=== PATIENT | male | born 2000 | race Caucasian/White ===

== ENCOUNTER 2022-05-23 21:31 | Emergency (ER) | payer OTHER ==
[~2022-05-23] VITALS: Ht 190.5 cm; Wt 75.0 kg
[2022-05-24] MEDS ORDERED: IBUPROFEN 800 MG TAB PO ONE (08:25)
[2022-05-24 08:30] VITALS: BP 126/74
[2022-05-24] MEDS ORDERED: CEPH500C PO (10:04)
[2022-05-24] MEDS ORDERED: IBUP80TA PO (10:04)
== END 2022-05-24 10:15 | disposition home or self-care (01) ==
LOC: M ED 21:31
DX: S61.301A Unspecified open wound of left index finger with damage to nail, initial encounter (principal); W26.8XXA Contact with other sharp object(s), not elsewhere classified, initial encounter; Y99.1 Military activity; F17.290 Nicotine dependence, other tobacco product, uncomplicated

== ENCOUNTER 2022-07-07 14:29 | Emergency (ER) | payer OTHER ==
[~2022-07-07] VITALS: Ht 188 cm; Wt 80.7 kg
[~2022-07-07 14:29] MED LIST: CEPH500C PO; IBUP80TA PO
[2022-07-07 14:30] VITALS: BP 129/68
[2022-07-07] MEDS ORDERED: DOXY-443 PO (15:34)
[2022-07-07] MEDS ORDERED: DOXYCYCLINE HYCLATE 100MG TABLET PO ONE (15:35)
== END 2022-07-07 15:48 | disposition home or self-care (01) ==
LOC: M ED 14:29
DX: S60.465A Insect bite (nonvenomous) of left ring finger, initial encounter (principal); L08.9 Local infection of the skin and subcutaneous tissue, unspecified; W57.XXXA Bitten or stung by nonvenomous insect and other nonvenomous arthropods, initial encounter; Y92.137 Garden or yard on military base as the place of occurrence of the external cause; Y99.1 Military activity